=== PATIENT | female | born 1970 | race Caucasian/White ===

== ENCOUNTER 2020-09-14 17:07 | Emergency (ER) | payer MEDICARE, MEDICAID ==
[~2020-09-14] VITALS: Ht 162.6 cm; Wt 48.0 kg
[~2020-09-14 17:07] MED LIST: BISA-155 PO; DIAZ5TAB PO; KETO10TA2 PO; LEVO100T9 PO; NORT10CA81 PO; ONDA4TAB12 PO; ONDA4TAB6 PO; OXYB5TAB16 PO
[2020-09-14 17:11] VITALS: BP 138/77
[2020-09-14] MEDS ORDERED: orphenadrine citrate 60mg/2ml inj. IM ONE (19:50)
[2020-09-14] MEDS ORDERED: ketorolac trometh inj. 60 MG/2 ML VIAL IM ONE (19:50)
[2020-09-14] MEDS ORDERED: HYDR-3965 PO (19:50)
[2020-09-14] MEDS ORDERED: CYCL-1 PO (19:50)
[2020-09-14] MEDS ORDERED: NAPR-56 PO (19:50)
[2020-09-14] MEDS ORDERED: HYDROcodone/acetaminophen 5mg/325mg tablet PO ONE (19:50)
== END 2020-09-14 20:16 | disposition home or self-care (01) ==
LOC: EDBD 17:08 → ER 17:08
DX: M54.5 Low back pain (principal); M79.604 Pain in right leg; M62.838 Other muscle spasm; Z98.890 Other specified postprocedural states; Z79.899 Other long term (current) drug therapy
CPT/HCPCS: 72131; 72192; 96372; 99285; J1885; J2360